=== PATIENT | female | born 1975 | race Caucasian/White ===

== ENCOUNTER → 2020-01-24 17:26 | Outpatient (CLI) | payer BC, SELFPAY ==
--- NOTE | 2020-01-24 17:59 | XR_ITS ---
PROCEDURE: XR LUMBAR SPINE MIN 4V CLINICAL INDICATION: LOW BACK PAIN SINCE PATIENT WAS 12 YEARS OLD. COMPARISON: No exams were available for comparison FINDINGS: Alignment: Normal alignment. Bony structures: No fracture or dislocation. No lytic or blastic change. Disc spaces: Mild degenerative change. The disc spaces are preserved. Additional findings: Minimal anterior osteophytes at L3-L4 and L5. Mild facet sclerotic changes at L5-S1. Nonspecific pelvic calcifications. Left-sided tubal ligation clip is present. Surgical clips are present in the right upper quadrant. There are 2 faint calcific densities overlying the lower pole of the right kidney suggesting right nephrolithiasis measuring 3 and 4 mm. IMPRESSION: Mild degenerative changes Right nephrolithiasis Dictated by: Scott Leung MD 01/24/2020 18:35 Scott Leung MD in [place] 01/24/2020 18:35
== END ==
PROVIDERS: PCP Nurse Practitioner; Visit Provider Nurse Practitioner
DX: M54.5 Low back pain (principal)
CPT/HCPCS: 72110

== ENCOUNTER → 2020-02-08 13:04 | Outpatient (CLI) | payer BC, SELFPAY ==
--- NOTE | 2020-02-08 13:07 | MR_ITS ---
PROCEDURE: MR LUMBAR SPINE WO CON CLINICAL INDICATION: LUMBAR DEGENERATVIE DISC DISEASE Pt states hx of ddd with mid to low back pain. Pt denies trauma or injury. Prior xray l-spine done 01/24/20 COMPARISON: CR XR LUMBAR SPINE MIN 4V from 01/24/2020 TECHNIQUE: Standard multiplanar multiecho sequences are performed without contrast. 3-D MIP and myelographic images are also rendered and reviewed FINDINGS: There is normal alignment. The spinal cord ends at the T12 level. L1-L2, L2-L3, L3-L4 have an unremarkable appearance. L4-5: There is a 2 cm T1 and T2 rounded hyperintensity in the central and right aspect of the body of L4 becoming less intense on the STIR images consistent with a lipid rich hemangioma. This L5-S1: Unremarkable. No extruded herniated disc or canal stenosis. IMPRESSION: 1. No acute finding. No canal stenosis or extruded herniated disc. 2. L4 hemangioma Dictated by: Scott Leung MD 02/11/2020 08:56 Scott Leung MD in [place] 02/11/2020 08:56
== END ==
PROVIDERS: PCP Nurse Practitioner; Visit Provider Nurse Practitioner
DX: M51.36 Other intervertebral disc degeneration, lumbar region (principal); M54.5 Low back pain
CPT/HCPCS: 72148; 76376

== ENCOUNTER → 2020-02-23 10:02 | Outpatient (CLI) | payer BC, SELFPAY ==
--- NOTE | 2020-02-23 10:02 | MR_ITS ---
PROCEDURE: MR HEAD/BRAIN WO/W CON CLINICAL INDICATION: severe headaches, vertigo COMPARISON: No exams were available for comparison TECHNIQUE: Routine multiplanar multi echo sequences are performed without gadolinium enhancement. FINDINGS: No midline shift, mass effect, intracranial hemorrhage, or hydrocephalus. No evidence of acute cortical infarction. The cerebellopontine angles, cerebellum, and brainstem have an unremarkable appearance. No enhancing lesions are evident. The pituitary, optic chiasm, corpus callosum, and craniocervical junction have an unremarkable appearance. There is mild bulging disc noted at C3-C4. No mastoid effusion or sinus air-fluid levels evident. IMPRESSION: 1. Negative MRI of the brain without and with contrast. 2. Mild bulging disc C3-C4. This may be better evaluated with cervical spine MRI if clinically warranted Dictated by: Scott Leung MD 02/23/2020 13:34 Scott Leung MD in [place] 02/23/2020 13:34
--- NOTE | 2020-02-23 10:13 | CA_ITS ---
APPROVED REPORT [employer] Installer: Candace Manley RVT Laterality: Bilateral Study Quality: Good Indications: vertigo Doppler Spectral Velocity Analysis ECA (R) 59.10/14.80 cm/s ECA (L) 68.10/21.80 cm/s dICA (R) 102.10/52.70 cm/s dICA (L) 70.00/32.70 cm/s Kina (R) 78.30/38.50 cm/s Kina (L) 83.50/44.30 cm/s pICA (R) 72.60/34.70 cm/s pICA (L) 99.50/37.20 cm/s dCCA (R) 78.10/26.70 cm/s dCCA (L) 93.10/36.60 cm/s pCCA (R) 94.10/19.20 cm/s pCCA (L) 87.30/24.40 cm/s Vert (R) 53.30/14.80 cm/s Vert (L) 60.40/21.80 cm/s ICA/CCA 1.31 ICA/CCA 1.07 Findings Study suggests no evidence of stenosis of the right internal cartoid artery. Study suggests no evidence of stenosis of the left internal cartoid artery. Antegrade flow seen bilateral vertebral arteries. Conclusion Study suggests no evidence of stenosis of the right internal cartoid artery. Study suggests no evidence of stenosis of the left internal cartoid artery. Antegrade flow seen bilateral vertebral arteries. Electronically signed by : Scott Leung MD 02/23/2020 13:52:29
[2020-02-23 13:52] LABS: Blood Urea Nitrogen 16 mg/dl (7-17); Estimated Glomerular Filt Rate 78 ml/min (>60); GFR (African American) 94 ML/MIN (>60)
[2020-02-23 14:13] LABS: Erythrocyte Sedimentation Rate 36 mm/hr (0-20)
[2020-03-05 08:02] LABS: Antinuclear Antibodies (ANA) NEGATIVE
== END ==
PROVIDERS: PCP Nurse Practitioner; Visit Provider Specialist
DX: G43.909 Migraine, unspecified, not intractable, without status migrainosus (principal); R42 Dizziness and giddiness
CPT/HCPCS: 36415; 70553; 82565; 84520; 85651; 86038; 93880; A9576; G0399

== ENCOUNTER → 2020-02-23 11:48 | Outpatient (CLI) | payer BC, SELFPAY | PROVIDERS: Visit Provider Specialist | DX: R51.9 Headache, unspecified (principal) | CPT/HCPCS: 36415; 82565; 84520; 85651; 86038 ==

== ENCOUNTER → 2020-03-12 12:44 | Outpatient (CLI) | payer BC, SELFPAY | PROVIDERS: PCP Nurse Practitioner; Visit Provider Family Medicine | DX: Z20.828 Contact with and (suspected) exposure to other viral communicable diseases (principal); U07.1 COVID-19 | CPT/HCPCS: U0003 ==

== ENCOUNTER → 2021-11-20 06:46 | Outpatient (CLI) | payer BC, SELFPAY ==
[2021-11-19 18:34] LABS: Basophils # 0.1 K/mm3 (0-0.2); Eosinophils # 0.2 K/mm3 (0.0-0.4); Eosinophils % 2.5 % (0.1-12.0); Hematocrit 41.6 % (37.0-47.0); Hemoglobin 13.6 g/dL (12.2-16.2); Lymphocytes # 1.8 K/mm3 (0.7-4.5); Lymphocytes % 24.2 % (10-50); Mean Corpuscular HGB Conc 32.6 g/dL (31.8-35.4); Mean Corpuscular Hemoglobin 29.4 pg (27.0-31.2); Mean Corpuscular Volume 90.3 fl (81-99); Mean Platelet Volume 8.3 fl (7.4-10.4); Monocytes # 0.6 K/mm3 (0.1-1.0); Monocytes % 7.3 % (1.7-9.3); Neutrophils % 65.1 % (37.0-80.0); Platelet Count 353 K/mm3 (142-424); Red Blood Count 4.61 M/mm3 (4.20-5.40); Red Cell Distribution Width 13.4 % (11.5-17.5); White Blood Count 7.6 K/mm3 (4.8-10.8)
[2021-11-19 19:38] LABS: Hemoglobin A1C 5.6 % (4.0-6.0)
[2021-11-19 19:57] LABS: Alanine Aminotransferase 40 U/L (12-78); Albumin Level 3.9 g/dl (3.5-5.0); Albumin/Globulin Ratio 1.4 (1.1-1.8); Alkaline Phosphatase 101 U/L (38-126); Anion Gap 9.6 mEq/L (5-15); Aspartate Amino Transferase 38 U/L (14-36); Blood Urea Nitrogen 8 mg/dl (7-17); Calcium 8.9 mg/dl (8.4-10.2); Carbon Dioxide 29 mmol/L (22.0-30.0); Chloride 103 mmol/L (98-107); Chol/HDL Ratio 5.8 (1-3.5); Cholesterol 190 mg/dl (140-200); Estimated Glomerular Filt Rate 108 ml/min (>60); GFR (African American) 130 ML/MIN (>60); Globulin 2.8 g/dL (1.3-3.2); Glucose 121 mg/dl (74-100); HDL Cholesterol 33 mg/dl (40-60); Potassium 4.6 mmoL/L (3.5-5.1); Sodium 137 mmol/L (136-145); Total Protein,Serum 6.7 g/dl (6.3-8.2); Triglycerides 151 mg/dl (30-150); VLDL Cholesterol 30 mg/dL (0-40)
[2021-11-19 20:08] LABS: Direct LDL Cholesterol 126.33 mg/dL (100-129)
[2021-11-19 20:30] LABS: Thyroid Stimulating Hormone 1.71 uIU/mL (0.465-4.68)
== END ==
PROVIDERS: PCP Nurse Practitioner; Visit Provider Nurse Practitioner
DX: G43.909 Migraine, unspecified, not intractable, without status migrainosus (principal); E66.9 Obesity, unspecified; Z68.41 Body mass index [BMI] 40.0-44.9, adult
CPT/HCPCS: 80053; 80061; 83036; 84443; 85025

== ENCOUNTER → 2022-01-07 07:06 | Outpatient (CLI) | payer BC, SELFPAY ==
[2022-01-07 20:44] LABS: Basophils # 0.1 K/mm3 (0-0.2); Basophils % 0.9 % (0.1-2.0); Eosinophils # 0.2 K/mm3 (0.0-0.4); Eosinophils % 2.2 % (0.1-12.0); Hematocrit 41.3 % (37.0-47.0); Hemoglobin 12.6 g/dL (12.2-16.2); Lymphocytes # 2.1 K/mm3 (0.7-4.5); Lymphocytes % 23.1 % (10-50); Mean Corpuscular HGB Conc 30.5 g/dL (31.8-35.4); Mean Corpuscular Hemoglobin 28.2 pg (27.0-31.2); Mean Corpuscular Volume 92.4 fl (81-99); Mean Platelet Volume 8.8 fl (7.4-10.4); Monocytes # 0.6 K/mm3 (0.1-1.0); Monocytes % 6.3 % (1.7-9.3); Neutrophils % 67.4 % (37.0-80.0); Platelet Count 398 K/mm3 (142-424); Red Blood Count 4.47 M/mm3 (4.20-5.40); Red Cell Distribution Width 14.4 % (11.5-17.5); White Blood Count 8.9 K/mm3 (4.8-10.8)
[2022-01-09 10:16] LABS: Cytomegalovirus (CMV) Ab, IgM <30.0 AU/mL (0.0-29.9)
[2022-01-09 13:10] LABS: Antistreptolysin O Ab <20.0 IU/mL (0.0-200.0)
[2022-01-09 14:11] LABS: EBV Ab VCA, IgM <36.0 U/mL (0.0-35.9); EBV Nuclear Antigen Ab, IgG 20.8 U/mL (0.0-17.9)
[2022-01-13 23:07] LABS: Lyme B. burgdorferi PCR Blood Negative (Negative)
== END ==
PROVIDERS: PCP Nurse Practitioner; Visit Provider Nurse Practitioner
DX: R59.0 Localized enlarged lymph nodes (principal)
CPT/HCPCS: 85025; 86060; 86644; 86645; 86664; 86665; 87476

== ENCOUNTER → 2022-01-15 14:46 | Outpatient (CLI) | payer BC, SELFPAY ==
--- NOTE | 2022-01-15 14:46 | US_ITS ---
FINAL REPORT CLINICAL HISTORY: Right axillary lymphadenopathy FINDINGS: US EXTREMITY, NONVASCULAR, LIMITED, ANATOMIC SPECIFIC Limited sonographic images were obtained of the right axilla. At the area of interest are multiple enlarged lymph nodes measuring up to 3 cm in greatest dimensions. IMPRESSION: Multiple enlarged lymph nodes at the area of interest could be reactive or neoplastic. Reviewed, Interpreted and Dictated by Ivan Garland III, MD Transcribed by Camilo Bass Authenticated and [facility]
== END ==
PROVIDERS: PCP Nurse Practitioner; Visit Provider Nurse Practitioner
DX: R59.0 Localized enlarged lymph nodes (principal)
CPT/HCPCS: 76882

== ENCOUNTER → 2022-01-28 15:01 | Outpatient (POV) | payer BC, SELFPAY | PROVIDERS: Visit Provider Dermatology | DX: Z00.00 Encounter for general adult medical examination without abnormal findings (principal) ==

== ENCOUNTER → 2022-01-29 10:41 | Outpatient (CLI) | payer BC, SELFPAY ==
--- NOTE | 2022-01-29 10:41 | US_ITS ---
PROCEDURE INFORMATION: Exam: US Right Breast, Complete MG Bilateral Screening 3D Mammography Exam date and time: 01/29/2022 11:44 AM Age: 46 years old Clinical indication: Patient had abnormal axillary ultrasound on 01/15/22 she returned today for bilateral mammogram and right breast ultrasound TECHNIQUE: Imaging protocol: Complete ultrasound of all four quadrants of the Right breast and the retroareolar regions, including ultrasound of the axilla when performed. Bilateral Screening tomosynthesis and 2D mammography including computer-aided detection (CAD) when performed. COMPARISON: MG MM DIG SCREENING MAMM BI W/CAD 01/29/2022 10:41 AM FINDINGS: MAMMOGRAPHY: Breast composition: The breasts are heterogeneously dense, which may obscure small masses. Mass: 3 irregularly marginated masses are noted in the posterior third of the right upper outer quadrant. The largest and more anterior mass measures 3.1 cm in greatest dimension. The 2 smaller more posterior masses near the right axillary tail measured 2.5 and 1.3 cm respectively. There is associated architectural distortion present. There is the suggestion of a fourth mass in the middle third of the right upper outer quadrant better seen in the MLO projection, approximately 6 cm anterior to the suspicious cluster of masses in the posterior third of the right upper outer quadrant Well-circumscribed 0 7 cm mass in the middle third of the LEFT approximate 9 o'clock axis. Architectural distortion: See above. Calcifications: None. Asymmetric density: None. Skin thickening: None. Axillary adenopathy: Abnormal dense right axillary lymph nodes are present.. ULTRASOUND: Right solid masses: Lobulated hypoechoic solid mass in the 10 o'clock axis 12 cm from the nipple measures 1.9 x 2.4 x 1.6 cm in dimension. In the right 10 o'clock axis 10 cm from the nipple corresponding to the dominant mass on mammography is a partially circumscribed heterogeneous hypoechoic lobulated solid mass measuring 3.4 x 1.8 x 3.2 cm in dimension. The third mass seen in the right axillary tail on the MLO view measuring 1.3 cm in greatest dimension is not seen on sonography. Minimal subcentimeter cystic change is otherwise noted in the right lower outer quadrant and right 12 o'clock axis 3 cm from the nipple. Right cystic masses: None. Right architectural distortion: None. Right acoustical shadowing: None. Right skin thickening: None. Right axillary adenopathy: Multiple abnormal lymph nodes are present, in that, no fatty or definitive fatty nba are identified. Left solid masses: None. Left cystic masses: None. Left architectural distortion: None. Left acoustical shadowing: None. Left skin thickening: None. Left axillary adenopathy: None. Other findings: IMPRESSION: 1. Findings highly suggestive multifocal right breast cancer with ipsilateral metastatic axillary adenopathy. Ultrasound-guided core biopsy of the dominant mass and ultrasound-guided fine needle aspiration of the right axilla are recommended for further evaluation. 2. Patient to return for spot compression views of the left breast in the CC and MLO projections and left breast ultrasound for further evaluation of a left breast mass. 3. Questionable subcentimeter mass in the middle third of the right upper outer quadrant may be further evaluated with compression mammographic views and repeat targeted right breast ultrasound if desired. ASSESSMENT: BI-RADS Category 0: Incomplete- Need Additional Imaging Evaluation and/or Prior Mammograms for Comparison 1
== END ==
PROVIDERS: PCP Nurse Practitioner; Visit Provider Nurse Practitioner
DX: R59.0 Localized enlarged lymph nodes (principal); Z12.31 Encounter for screening mammogram for malignant neoplasm of breast
CPT/HCPCS: 76641; 77063; 77067

== ENCOUNTER → 2022-02-03 14:00 | Outpatient (CLI) | payer BC, SELFPAY ==
--- NOTE | 2022-02-03 14:01 | US_ITS ---
PROCEDURE INFORMATION: Exam: US Left Breast, Complete MG Bilateral Diagnostic Breast Tomosynthesis Exam date and time: 02/03/2022 2:23 PM Age: 46 years old Clinical indication: The right breast ultrasound/mammogram from 01/29/2022 describes findings highly suggestive of right breast cancer with axillary metastatic adenopathy. Additional assessment including spot compression views of the left breast to assess a 7 mm mass in the 9 o'clock middle 1/3, and questionable subcentimeter mass in the middle 1/3 right upper outer quadrant was recommended as well TECHNIQUE: Imaging protocol: Complete ultrasound of all four quadrants of the Left breast and the retroareolar regions, including ultrasound of the axilla when performed. Bilateral Diagnostic tomosynthesis and 2D mammography including computer-aided detection (CAD) when performed. Unilateral or bilateral exam. COMPARISON: MG MM DIG MAMM BI DX W/CAD 02/03/2022 1:56 PM FINDINGS: MAMMOGRAPHY: Right: Persistent 0.6 cm upper outer right middle 1/3 focal asymmetry is mostly obscured. This could reflect solid or cystic mass. If conservative therapy is a clinical consideration, MRI staging should be considered to assess for multifocal extent Left: Spot compression views of the left breast demonstrate a circumscribed low-density 0.7 cm mass in the approximately 9 o'clock left breast 7 cm from the nipple. No associated architectural distortion or suspicious calcifications are present. This has generally benign features ULTRASOUND: Hypoechoic/anechoic circumscribed structures consistent with simple and mildly complex cysts are present throughout the left breast as follows: 0.5 cm left 1 o'clock 5 cm from the nipple 0.4 cm left 6 o'clock 4 cm from the nipple 0.7 cm left 8 o'clock 6 cm from the nipple (corresponds well in size in location with the mammographic finding. No dominant or morphologically suspicious left breast mass is present IMPRESSION: As previously described, there is highly suggestive evidence of multifocal right breast cancer (the largest mass 3.3 cm, with largest axillary adenopathy 4.0 cm) with metastatic axillary adenopathy for which ultrasound-guided biopsy is recommended MRI staging should be considered if conservative therapy is considered as a nonspecific mammographically apparent 0.6 cm upper outer right middle 1/3 mass/cyst is present No suspicious findings are present within the left breast. ASSESSMENT: BI-RADS category 5: Highly suggestive of malignancy
== END ==
PROVIDERS: PCP Nurse Practitioner; Visit Provider Nurse Practitioner
DX: D48.62 Neoplasm of uncertain behavior of left breast (principal); D48.61 Neoplasm of uncertain behavior of right breast
CPT/HCPCS: 76641; 77062; 77066; G0279

== ENCOUNTER → 2022-02-06 10:41 | Outpatient (CLI) | payer BC, SELFPAY ==
--- NOTE | 2022-02-06 10:41 | US_ITS ---
FINAL REPORT CLINICAL HISTORY: Right breast mass. Right axillary adenopathy. Biopsy x2 FINDINGS: ULTRASOUND-GUIDED RIGHT BREAST CORE BIOPSY TECHNIQUE: Limited images were obtained to localize region of interest. Lobulated mass was identified in the right upper outer quadrant. The right axilla was prepped in a routine sterile fashion and locally anesthetized with 1% lidocaine. Standard written informed consent was obtained. The biopsy needle was positioned within the outer periphery of the lesion. Lesion was positioned at approximately 10:00. A total of 4 passes were made with a 18 gauge core biopsy needle. A biopsy marker clip was deployed in satisfactory position. Postbiopsy mammogram showed postbiopsy changes with clip in satisfactory position. Procedure was well tolerated . CONCLUSION: 1. Technically successful ultrasound guided core biopsy of right breast lesion as above. 2. Biopsy marker clip deployed ULTRASOUND-GUIDED RIGHT AXILLARY LYMPH NODE CORE BIOPSY TECHNIQUE: Limited images were obtained to localize region of interest. Multiple enlarged lymph nodes were identified in the right axilla. The right axilla was prepped in a routine sterile fashion and locally anesthetized with 1% lidocaine. Standard written informed consent was obtained. The biopsy needle was positioned within the outer periphery of the lesion. A total of 3 passes were made with a 18 gauge core biopsy needle. Procedure was well tolerated . CONCLUSION: 1. Technically successful ultrasound guided core biopsy of enlarged right axillary lymph node Authenticated and [facility]
--- NOTE | 2022-02-06 12:05 | MM_ITS ---
FINAL REPORT CLINICAL HISTORY: . . clip placement , S/p Ultrasound guided bx FINDINGS: MAMMOGRAM RIGHT TECHNIQUE: Standard digital 2-D views COMPARISON: 01-29-22 DENSITY: There are scattered areas of fibroglandular density FINDINGS: Post biopsy marker clip is noted to be in satisfactory position. Postbiopsy changes are noted. The clip is noted to be within a mass in the right upper outer quadrant. IMPRESSION: Biopsy marker clip in good position RECOMMENDATION: 1. Histopathology reveals findings compatible with invasive ductal carcinoma 2. Appropriate consultation recommended for treatment Authenticated and [facility]
== END ==
PROVIDERS: PCP Nurse Practitioner; Visit Provider Surgery
DX: D48.61 Neoplasm of uncertain behavior of right breast (principal)
CPT/HCPCS: 10005; 19083; 76642; 77065; 88305; 88342; 88360

== ENCOUNTER 2022-04-14 12:00 | Outpatient (CLI) | payer BC, SELFPAY ==
[2022-04-16 12:38] LABS: Rapid Plasma Reagin Ab Titer Non Reactive (NonRea<1:1)
[2022-04-19 23:09] LABS: HIV Screen 4th Generation wRfx NON REACTIVE; Hep A Ab, IgM NEGATIVE; Hepatitis B Core Antibody IgM NEGATIVE; Hepatitis B Surface Antigen NEGATIVE; Hepatitis C Antibody <0.1
== END 2022-04-14 12:30 | disposition home or self-care (01) ==
LOC: LAB 12:02 → INF 12:04
PROVIDERS: PCP Nurse Practitioner; Visit Provider Obstetrics & Gynecology
DX: Z20.2 Contact with and (suspected) exposure to infections with a predominantly sexual mode of transmission (principal); Z11.4 Encounter for screening for human immunodeficiency virus [HIV]
CPT/HCPCS: 36591; 80074; 86592; 86703; G0432; J1642

== ENCOUNTER → 2022-04-15 11:35 | Outpatient (CLI) | payer BC, SELFPAY | PROVIDERS: Visit Provider Obstetrics & Gynecology | DX: N39.0 Urinary tract infection, site not specified (principal); B96.29 Other Escherichia coli [E. coli] as the cause of diseases classified elsewhere | CPT/HCPCS: 87086; 87186 ==

== ENCOUNTER → 2022-06-23 23:39 | Outpatient (CLI) | payer BC, SELFPAY ==
[2022-06-23 18:19] LABS: Adenovirus,PCR Not Detected (NotDetected); Bordetella Pertussis Not Detected (NotDetected); Chlamydophila Pneumoniae, PCR Not Detected (NotDetected); Coronavirus 229E Not Detected (NotDetected); Coronavirus NL63 Not Detected (NotDetected); Coronavirus OC43 Not Detected (NotDetected); Coronovirus HKU1,PCR Not Detected (NotDetected); Human Metapneumovirus Not Detected (NotDetected); Influenza A, PCR Not Detected (NotDetected); Influenza AH1, 2009 Not Detected (NotDetected); Influenza AH1, PCR Not Detected (NotDetected); Influenza AH3,PCR Not Detected (NotDetected); Influenza B, PCR Not Detected (NotDetected); Mycoplasma Pneumoniae, PCR Not Detected (NotDetected); Parainfluenza 1, PCR Not Detected (NotDetected); Parainfluenza 2, PCR Not Detected (NotDetected); Parainfluenza 3, PCR Not Detected (NotDetected); Parainfluenza 4, PCR Not Detected (NotDetected); Respiratory Syncytial Virus Not Detected (NotDetected); Rhinovirus/Enterovirus Not Detected (NotDetected)
[2022-06-23 19:29] LABS: Anion Gap 9.8 mEq/L (5-15); Blood Urea Nitrogen 7 mg/dl (7-17); Calcium 8.8 mg/dl (8.4-10.2); Carbon Dioxide 27 mmol/L (22.0-30.0); Chloride 102 mmol/L (98-107); Estimated Glomerular Filt Rate 133 ml/min (>60); GFR (African American) 161 ML/MIN (>60); Glucose 133 mg/dl (74-100); Potassium 3.8 mmoL/L (3.5-5.1); Sodium 135 mmol/L (136-145)
[2022-06-23 19:45] LABS: Hemoglobin A1C 5.5 % (4.0-6.0)
[2022-06-23 20:29] LABS: Basophils # 0.1 K/mm3 (0-0.2); Basophils % 1.6 % (0.1-2.0); Eosinophils # 0.2 K/mm3 (0.0-0.4); Eosinophils % 5.8 % (0.1-12.0); Hematocrit 34.5 % (37.0-47.0); Hemoglobin 11.1 g/dL (12.2-16.2); Lymphocytes # 0.8 K/mm3 (0.7-4.5); Lymphocytes % 20.9 % (10-50); Mean Corpuscular HGB Conc 32.2 g/dL (31.8-35.4); Mean Corpuscular Hemoglobin 29.8 pg (27.0-31.2); Mean Corpuscular Volume 92.5 fl (81-99); Mean Platelet Volume 9.6 fl (7.4-10.4); Monocytes # 0.2 K/mm3 (0.1-1.0); Monocytes % 5.7 % (1.7-9.3); Neutrophils # 2.4 K/mm3 (1.8-7.8); Platelet Count 280 K/mm3 (142-424); Red Blood Count 3.73 M/mm3 (4.20-5.40); Red Cell Distribution Width 18.3 % (11.5-17.5); White Blood Count 3.6 K/mm3 (4.8-10.8)
[2022-06-23 22:40] LABS: Coronavirus 19, PCR Detected (NotDetected)
== END ==
PROVIDERS: PCP Nurse Practitioner; Visit Provider Nurse Practitioner
DX: U07.1 COVID-19 (principal); J06.9 Acute upper respiratory infection, unspecified; R73.09 Other abnormal glucose
CPT/HCPCS: 80048; 83036; 85025; 87581; 87632; 87798; C9803; U0003; U0005

== ENCOUNTER 2024-04-05 15:50 | Outpatient (CLI) | payer BC, SELFPAY ==
[2024-04-05 18:55] LABS: Basophils # 0.1 K/mm3 (0-0.2); Basophils % 1.4 % (0.1-2.0); Eosinophils # 0.2 K/mm3 (0.0-0.4); Eosinophils % 3.1 % (0.1-12.0); Hematocrit 41.9 % (37.0-47.0); Hemoglobin 13.6 g/dL (12.2-16.2); Lymphocytes # 2.1 K/mm3 (0.7-4.5); Lymphocytes % 33.1 % (10-50); Mean Corpuscular HGB Conc 32.3 g/dL (31.8-35.4); Mean Corpuscular Hemoglobin 28.8 pg (27.0-31.2); Mean Corpuscular Volume 89.2 fl (81-99); Mean Platelet Volume 7.2 fl (7.4-10.4); Monocytes # 0.3 K/mm3 (0.1-1.0); Monocytes % 5.1 % (1.7-9.3); Neutrophils # 3.6 K/mm3 (1.8-7.8); Neutrophils % 57.3 % (37.0-80.0); Platelet Count 284 K/mm3 (142-424); Red Cell Distribution Width 14.8 % (11.5-17.5); White Blood Count 6.3 K/mm3 (4.8-10.8)
[2024-04-05 19:20] LABS: Alanine Aminotransferase 37 U/L (12-78); Albumin Level 4.3 g/dl (3.5-5.0); Albumin/Globulin Ratio 1.7 (1.1-1.8); Alkaline Phosphatase 107 U/L (38-126); Anion Gap 11.1 mEq/L (5-15); Aspartate Amino Transferase 28 U/L (14-36); Blood Urea Nitrogen 9 mg/dl (7-17); Calcium 9.3 mg/dl (8.4-10.2); Carbon Dioxide 30 mmol/L (22.0-30.0); Chloride 102 mmol/L (98-107); Chol/HDL Ratio 4.8 (1-3.5); Cholesterol 202 mg/dl (140-200); Estimated Glomerular Filt Rate 89 ml/min (>60); GFR (African American) 108 ML/MIN (>60); Globulin 2.6 g/dL (1.3-3.2); Glucose 89 mg/dl (74-100); HDL Cholesterol 42 mg/dl (40-60); Potassium 4.1 mmoL/L (3.5-5.1); Sodium 139 mmol/L (136-145); Total Protein,Serum 6.9 g/dl (6.3-8.2); Triglycerides 144 mg/dl (30-150); VLDL Cholesterol 29 mg/dL (0-40)
[2024-04-05 19:27] LABS: Erythrocyte Sedimentation Rate 15 mm/hr (0-20)
[2024-04-05 19:31] LABS: C-Reactive Protein 18.5 mg/L (0-4); Direct LDL Cholesterol 146.43 mg/dL (100-129)
[2024-04-05 19:40] LABS: 25-OH Vitamin D, Total 26.5 ng/mL (30-100); Free T4 (Free Thyroxine) 0.67 ng/dl (0.78-2.19)
[2024-04-05 19:52] LABS: Thyroid Stimulating Hormone 3.69 uIU/mL (0.465-4.68)
[2024-04-05 20:00] LABS: Hemoglobin A1C 5.9 % (4.0-6.0)
[2024-04-05 21:31] LABS: Vitamin B12 424 pg/mL (239-931)
[2024-04-07 08:26] LABS: RA Latex Turbid. <10.0 IU/mL (<14.0)
[2024-04-07 12:15] LABS: Anti-Centromere B Antibodies <0.2 AI (0.0-0.9); Anti-DNA (DS) Ab Qn 1 IU/mL (0-9); Anti-Jo-1 <0.2 AI (0.0-0.9); Anti-Smith Antibody <0.2 AI (0.0-0.9); Antichromatin Antibodies <0.2 AI (0.0-0.9); Antiscleroderma-70 Antibodies <0.2 AI (0.0-0.9); RNP Antibodies <0.2 AI (0.0-0.9); Sjogren's Anti-SS-A <0.2 AI (0.0-0.9); Sjogren's Anti-SS-B <0.2 AI (0.0-0.9)
[2024-04-08 11:23] LABS: Antinuclear Antibodies, IFA POSITIVE
== END 2024-04-05 23:59 | disposition home or self-care (01) ==
LOC: LAB.DROPOF 04-06 09:54
PROVIDERS: PCP Nurse Practitioner; Visit Provider Nurse Practitioner
DX: R42 Dizziness and giddiness (principal); R25.2 Cramp and spasm; Z13.1 Encounter for screening for diabetes mellitus; Z13.220 Encounter for screening for lipoid disorders; Z92.21 Personal history of antineoplastic chemotherapy
CPT/HCPCS: 80050; 80053; 80061; 82306; 82607; 83036; 84439; 84443; 84550; 85025; 85651; 86038; 86140; 86225; 86235; 86431

== ENCOUNTER 2024-10-05 13:34 | Outpatient (CLI) | payer BC, SELFPAY ==
[2024-10-05] MEDS: SODIUM CHLORIDE 0.9% 10ML FLUSH SYRINGE 10 ML IV (14:07)
== END 2024-10-05 13:55 | disposition home or self-care (01) ==
LOC: INF 13:35
PROVIDERS: PCP Nurse Practitioner; Visit Provider Internal Medicine
DX: Z45.2 Encounter for adjustment and management of vascular access device (principal)
CPT/HCPCS: 96523; J1642

== ENCOUNTER 2024-11-15 10:10 | Outpatient (CLI) | payer BC, SELFPAY ==
[2024-11-15] MEDS: SODIUM CHLORIDE 0.9% 10ML FLUSH SYRINGE 10 ML IV (10:25)
== END 2024-11-15 10:20 | disposition home or self-care (01) ==
LOC: INF 10:11
PROVIDERS: PCP Nurse Practitioner; Visit Provider Internal Medicine
DX: Z45.2 Encounter for adjustment and management of vascular access device (principal)
CPT/HCPCS: 96523; J1642

== ENCOUNTER 2024-12-13 08:14 | Outpatient (CLI) | payer BC, SELFPAY ==
[2024-12-13] MEDS: SODIUM CHLORIDE 0.9% 10ML FLUSH SYRINGE 10 ML IV (08:15)
--- OUTSIDE RECORDS SUMMARY | 2024-12-13 08:31 | XMS_ITS | Clinical Summary ---
Author Organization [facility] Address [address] [place], [place] [address] Care Team Providers Care Chlorinator Name Role Phone None, None Primary Care Provider Unavailabl e Allergies Active Allergy Reactions Criticality Noted Date Comments Penicillins Hives Medium 02/12/2012 Sulfa (Sulfonamide Antibiotics) Nausea And Vomiting Medium 02/12/2012 Medications ACETAMINOPHEN/D IPHENHYDRAMINE (TYLENOL PM EXTRA STRENGTH PO) Take 2 Tabs by mouth as needed. Active ibuprofen (MOTRIN) 600 mg tablet Take 1 Tab by mouth every 6 hours as needed for Pain. 90 Tab 1 12/09/2017 Active butalbital-acet aminophen-caffe ine (FIORICET, ESGIC) 50-325-40 mg per tabletIndicatio ns:Tension headache Take 1-2 Tabs by mouth every 6 hours as needed for Headaches. 30 Tab 12/09/2017 Active metaxalone (SKELAXIN) 800 mg TabletIndicatio ns:Neck pain Take 1 Tab by mouth 3 times daily. 90 Tab 1 12/09/2017 Active sumatriptan (IMITREX) 100 mg Tablet Take 1 Tab by mouth once as needed for Migraine for up to 1 dose. 10 Tab 1 12/09/2017 Active amitriptyline (ELAVIL) 25 mg tablet Take 1 Tab by mouth every evening. 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 ainosus, not intractable, unspecified migraine type 03/24/2018 Tension headache 03/24/2018 Family History Relation Name Status Comments Daughter 1 Alive Daughter 2 Alive Son 1 Alive Son 2 Alive Son 3 Alive Social History Tobacco Use Types Packs/Day Years Used Date Smoking Tobacco: Former Cigarettes Q uit: 12/23/2010 Smokeless Tobacco: Never Tobacco Cessation:Counseling Given: Yes Alcohol Use Standard Drinks/Week Comments Yes 0 (1 standard drink = 0.6 oz pur e alcohol) rarely PHQ-2 Answer Date Recorded PHQ-2 Score 0 08/07/2018 Comments No Sex and Gender Information Value Date Recorded Sex Assigned at Not on file Legal Sex Female 7:22 PM EST Gender Identity Not on file Sexual Orientation Not on file Last Filed Vital Signs Vital Sign Reading Time Taken Comments Blood Pressure 122/80 06/11/2018 12:41 PM EST Pulse 115 06/11/2018 12:41 PM EST Temperature 36.8 C (98.3 F) 06/11/2018 12:41 PM EST Respiratory Rate - - Oxygen Saturation 95% 06/11/2018 12:41 PM EST Inhaled Oxygen Concentration - - Weight 108.9 kg (240 lb) 06/11/2018 12:41 PM EST Height 165.1 cm (5' 5 ) 07/05/2015 2:51 PM EST Body Mass Index 39.94 07/05/2015 2:51 PM EST Plan of Treatment Health Maintenance Due Date Last Done Comments Cologuard 1975 Colonoscopy 1975 Colorectal Cancer Screening 1975 FIT 1975 Cervical Cancer Screening 05/20/20202017 (Patient/Parent/Guardian Counseled and Declines) Lipid Screening 05/20/2022 05/20/2017 COVID-19 Vaccine (2023-2 5 season) 2024 Depression Screening 05/04/2024 03/24/2018 Influenza Vaccination (#1) 2025 Tetanus Vaccination (Every 1 0 Years) 05/20/2027 05/20/2017 (Patient/Parent/Guardian Counseled and Declines) Influenza Vaccination (Yearly) Discontinued 0 05/20/2017 (Patient/Parent/Guardian Counseled and Declines) Procedures Procedure Name Priority Date/Time Associated Diagnosis Comments LIPID PROFILE Routine 05/20/2017 11:35 AM EST Increased severity of headaches Facial paresthesia Migraine without status migrainosus, not intractable, unspecified migraine type from Last 3 Months or Most Recently Relevant to Health Maintenance Results * (ABNORMAL) LIPID PROFILE (05/20/2017 11:35 AM EST) Chol/HDL Ratio 5.5(H) 0 - 5 TC E XTERNAL LAB Cholesterol 188 125 - 199 mg/dL [facility] Comment: TOTAL CHOLESTEROL INTERPRETATION: Less than 200 mg/dL Desireable 200-239 mg/dL Borderline Greater or Equal to 240 mg/dL High LDL Calculated 119(H) 0 - 100 mg/dL [facility] Comment: LDL CHOLESTEROL INTERPRETATION: Less than 100 mg/dL Optimal 100-129 mg/dL Near optimal/above optimal 130-159 mg/dL Borderline High 160-189 mg/dL High Greater or Equal to 190 mg/dL Very High HDL 34(L) 40 - 180 mg/dL [facility] Comment: HDL CHOLESTEROL INTERPRETATION: Less than 40 mg/dL Low Greater than 60 mg/dL Desirable Triglycerides 174(H) 0 - 150 mg/dL [facility] Comment: TOTAL TRIGLYCERIDE INTERPRETATION: Less than 150 mg/dL Normal 150-199 mg/dL Borderline HIgh 200-499 mg/dL High Greater or Equal to 500 mg/dL Very High Plasma 05/20/2017 11:3 5 AM EST 05/20/2017 2:26 PM EST Narrative [facility] - 05/20/2017 5:22 PM EST Has the patient fasted?->Yes us Deuce Rapp MD CHEMISTRY ORDERABLES Final Res ult [facility] [address] [place] [address] from Last 3 Months or Most Recently Relevant to Health Maintenance Insurance [employer] Care Teams Chlorinator Relationship Specialty Start Date End Date None, None [address] [place] [address] PCP - General 05/16/19
--- OUTSIDE RECORDS SUMMARY | 2024-12-13 08:31 | XMS_ITS ---
Author Name Interface, [id number] lity Address [address] [place], [place] [address] [address] Oncology an d Hematology Address [address] [place] [address] [address] [place] [address] Allergies and Adverse Reactions Medication/Group Name Reaction Severity Date Sulfamide 02/18/2022 Penicillins 02/18/2022 Plan Date Type Value 02/20/2022 APPOINTMENT NEW PATIENT 02/20/2022 APPOINTMENT Lab 02/20/2022 LABORDER CBC w/ auto diff 02/20/2022 LABORDER CMP 02/20/2022 LABORDER CA 27-29 Reason for Visit Lab Encounters Date Name 02/20/2022 Advance directive in formation unavailable (finding) 02/20/2022 Breast cancer, femal e Diagnostic Results Date Type Test Units Lower Limit Upper Limit Result Flag Comments Status Ordered By Specimen Source Lab Address 02/20 CA 27-29 U/mL 0.0 38.6 10.4 Siemens Centaur Immunoche miluminom etric Methodolo gy (ICMA) .Values obtained with different assay methods or kits cannot be usedinter changeabl y. Results cannot be interpret ed as absolute evidenceo f the presence or absence of malignant disease. FINAL [address] [id number] Isidro Bass i PhD 02/20 PDF Repor t1 See d FINAL [address] [id number] 9 Isidro Bass i PhD 02/20 WBC x10E3/ uL 3.4 10.8 8.[address] [id number] 9 Isidro Bass i PhD 02/20 RBC x10E6/ uL 3.77 5.28 4.72 FINAL [facility], [address] [facility] [place] [id number] 9 Vincent Ricchiut i PhD 02/20 HGB g/dL 11.1 15.9 13.7 FINAL Elan Myhand [facility], [address] [facility] [id number] 9 Vincent Ricchiut i PhD 02/20 HCT % 34.0 46.6 41.6 FINAL Elan Myhand [facility], [address] [facility] [place] [id number] 9 Vincent Ricchiut i PhD 02/20 MCV fL 79.0 97.0 88 FINAL Elan Myhand [facility], [address] [facility] [id number] 9 Vincent Ricchiut i PhD 02/20 MCH pg 26.6 33.0 29.0 FINAL [facility] [place] [facility], [address] [facility] [id number] 9 Vincent Ricchiut i PhD 02/20 MCHC g/dL 31.5 35.7 32.9 FINAL [facility] [place] [facility], [address] [facility] [id number] 9 Vincent Ricchiut i PhD 02/20 RDW % 11.7 15.4 13.0 FINAL [facility] [place], [address] [facility] [id number] 9 Vincent Ricchiut i PhD 02/20 PLT x10E3/ uL 150.0 450.0 355 FINAL [facility] [place], [address] [facility] [place] [id number] 9 Vincent Ricchiut i PhD 02/20 Kalpana % % 59 FINAL Elan Myhand [facility], [address] [facility] [place] [id number] 9 Vincent Ricchiut i PhD 02/20 LY % % 31 FINAL Elan Myhand [facility], [address] [facility] [id number] 9 Vincent Ricchiut i PhD 02/20 MO % % 7 FINAL Elan Myhand [facility], [address] [facility] [place] [id number] 9 Vincent Ricchiut i PhD 02/20 EO % % 2 FINAL Elan Myhand [facility], [address] [facility] [place] [id number] 9 Vincent Ricchiut i PhD 02/20 BA % % 1 FINAL Elan Myhand [facility], [address] [facility] [place] [id number] 9 Vincent Ricchiut i PhD 02/20 Kalpana # (ANC) x10E3/ uL 1.4 7.0 5.0 FINAL Elan Myhand [facility], [address] [facility] [place] [id number] 9 Vincent Ricchiut i PhD 02/20 LY # x10E3/ uL 0.7 3.1 2.7 FINAL Elan Myhand [facility], [address] [facility] [place] [id number] 9 Vincent Ricchiut i PhD 02/20 MO # x10E3/ uL 0.1 0.9 0.6 FINAL Elan Myhand [facility], [address] [facility] [place] [id number] 9 Vincent Ricchiut i PhD 02/20 EO # x10E3/ uL 0.0 0.4 0.2 FINAL Elan Myhand [facility], [address] [facility] [place] [id number] 9 Vincent Ricchiut i PhD 02/20 BA # x10E3/ uL 0.0 0.2 0.1 FINAL Elan Myhand [facility], [address] [facility] [place] [id number] 9 Vincent Ricchiut i PhD 02/20 IG % % 0 FINAL Elan Myhand [facility], [address] [facility] [place] [id number] 9 Vincent Ricchiut i PhD 02/20 IG # x10E3/ uL 0.0 0.1 0.0 FINAL Elan Myhand [facility], [address] [facility] [place] [id number] 9 Vincent Ricchiut i PhD 02/20 Gluco se mg/dL 70.0 99.0 74 FINAL Elan Myhand [facility], [address] [facility] [place] [id number] 9 Vincent Ricchiut i PhD 02/20 BUN mg/dL 6.0 24.0 8 FINAL Elan Myhand [facility], [address] [facility] [id number] 9 Vincent Ricchiut i PhD 02/20 Creat inine mg/dL 0.57 1.0 0.69 FINAL [facility], [address] [facility] [id number] 9 Vincent Ricchiut i PhD 02/20 eGFR mL/min /1.73 108 FINAL Elan [facility], [address] [facility] [id number] 9 Vincent Ricchiut i PhD 02/20 BUN/C reati nine ratio 9.0 23.0 12 FINAL Elan [facility], [address] [facility] [id number] 9 Vincent Ricchiut i PhD 02/20 Sodiu m mmol/L 134.0 144.0 140 FINAL Elan [facility], [address] [facility] [id number] 9 Vincent Ricchiut i PhD 02/20 Potas sium mmol/L 3.5 5.2 4.7 FINAL Elan [facility], [address] [facility] [id number] 9 Vincent Ricchiut i PhD 02/20 Chlor sophie mmol/L 96.0 106.0 99 FINAL Elan [facility], [address] [facility] [id number] 9 Vincent Ricchiut i PhD 02/20 CO2 mmol/L 20.0 29.0 25 FINAL Elan [facility], [address] [facility] [id number] 9 Vincent Ricchiut i PhD 02/20 Calci um mg/dL 8.7 10.2 9.2 FINAL El[facility], [address] [facility] [id number] 9 Vincent Ricchiut i PhD 02/20 Total prote in g/dL 6.0 8.5 7.3 FINAL Elan [facility], [address] [facility] [id number] 9 Vincent Ricchiut i PhD 02/20 Album in g/dL 3.8 4.8 4.8 FINAL Elan [facility], [address] [facility] [id number] 9 Vincent Ricricokieran denisse PhD 02/20 Globu marcy g/dL 1.5 4.5 2.5 FINAL Elan [facility], [address] [facility] [id number] 9 Isidro Bass i PhD 02/20 A/G ratio 1.2 2.2 1.9 FINAL Elan [facility], [address] [facility] [id number] 9 Isidro Alonzoricokieran denisse PhD 02/20 Bilir ubin, total mg/dL 0.0 1.2 0.8 FINAL El[facility], [address] [facility] [id number] 9 Isidro Alonzobrittni salcedo PhD 02/20 Alkal ine phosp hatas e IU/L 44.0 121.0 104 FINAL Elan [facility], [address] [facility] [id number] 9 Isidro Bass denisse PhD 02/20 AST/S GOT IU/L 0.0 40.0 24 FINAL Elan [facility], [address] [facility] [id number] 9 Isidro Bass denisse PhD 02/20 ALT/S GPT IU/L 0.0 32.0 31 FINAL [facility], [address] [facility] [id number] 9 Isidro Bass denisse PhD Medications Date Name Route Dose Frequency Instructions Start Date End Date Status Liraglutide Subcutaneous Pen Injector (Saxenda) a ctive Rimegepant Oral Disintegrating Tablet active Naproxen Oral act laura metaxalone Oral (Skelaxin) active Cefdinir Oral act laura Problems Diagnosis Status Date of Diagnosis Resolution Date Breast cancer, female Active Advance directive informatio n unavailable (finding) Active HTN Active Vital Signs Date Type Value 02/20/2022 Heart Beat 77.00 02/20/2022 Intravascular Systolic 149 02/20/2022 Intravascular Diastolic 98 02/20/2022 Body Temperature 98.10 02/20/2022 Respiratory Rate 16.00 02/20/2022 Pain Scale 0.00 02/20/2022 Weight 244.00 02/20/2022 Height 66.00 02/20/2022 BMI 39.38 02/20/2022 BSA 2.18 02/20/2022 Oxygen Saturation 98.00 Notes Section * Nurse Note for: 20-FEB-22 [facility] Oncology and Hematology Nurse Note Print Location: Unknown Date/Time Printed: 12/13/2024 08:30 ([facility]) Patient: Hussain Rubin Sex: Female : 1975 Date of Service: 02/20/2022 Allergies : Sulfamide, Penicillins Vital Signs : Time: 13:14. Pulse: 77 (/min) . Blood pressure: 149/98 (mm Hg). Entered by Shalini Coto 02/20/2022 13:17 Time: 13:14. Weight: 244 (lb) . Height: 66 (in) . BMI: 39.38 (kg/m2) . BSA: 2.18 (m2) . Temperature: 98.1 (F) . Respirations: 16 (/min) . Pain Scale: 0. O2 Saturation: 98 (%) . Entered by Shalini Coto 02/20/2022 13:15 Time: 03:00. Pain Scale: 0. Entered by Shalini Coto 02/20/2022 13:12 Patient Assessment : Negative results Assessment : Labs Verified: No, Alert, oriented with appropriate behavior, Gait Changes. Denies Neuropathy , Pain -0-No pain, Fatigue , Anxiety/Depression , Fever, Chills or Night Sweats ,Signs of Infection , Skin Changes , Dizziness , Headaches , Nausea , Breathing Changes , Cough , Mouth Sores/Stomatitis/Mucositis , Changes in Appetite , Vomiting , Diarrhea , Constipation , Urinary Changes , Bleeding . Entered By Shalini Coto on 13:12
--- OUTSIDE RECORDS SUMMARY | 2024-12-13 08:31 | XMS_ITS | CCD ---
Author Name Interface, [id number] lity Address [address] [place] [address] Oncology an d Hematology Address [address] [place] [address] Care Team Providers Care Environmental Protection Specialist Name Role Phone Elan Rose MD Unavailable Unavailable Allergies and Adverse Reactions Reason for Visit Medications Problems Social History
--- OUTSIDE RECORDS SUMMARY | 2024-12-13 08:31 | XMS_ITS | Clinical Summary ---
Author Organization [facility] Address [address] [place] [address] Phone Care Team Providers Care Research Greenhouse Supervisor Name Role Phone Unavailable Primary Care Provider Unavailabl e Allergies Active Allergy Reactions Criticality Noted Date Comments Penicillins 05/14/2010 Sulfa (Sulfonamide Antibiotics) 05/04 Medications * This document contains information received from the source organization and may not represent a complete record from that organization. amitriptyline (ELAVIL) 25 mg Oral Tablet TAKE 1 TABLET BY MOUTH EVERY DAY AT NIGHT 03/01/2018 Active butalbital-aceta minophen-caffein e (FIORICET, ESGIC) 50-325-40 mg Oral Tablet Take by mouth. 12/09/2017 Active ibuprofen (ADVIL;MOTRIN) 600 mg Oral Tablet Take by mouth. 12/09/2017 Active metaxalone (SKELAXIN) 800 mg Oral Tablet Take by mouth. 12/09/2017 Active SUMAtriptan (IMITREX) 100 mg Oral Tablet Take by mouth. 12/09/2017 Active Active Problems No known active problems Surgical History Surgery Date Site/Laterality Comments TONSILLECTOMY CHOLECYSTECTOMY TUBAL LIGATION HAND SURGERY ganglion right wrist KNEE ARTHROSCOPY 05/14/2018 Right RIGHT KNEE ARTHROSCOPY DEBRIDEMENT MEDIAL MENISCECTOMY CHONDROPLASTY ; Surgeon: Henri Guerrero MD; Location: [facility]; Service: Orthopedics Medical History Medical History Date Comments Headache Chronic kidney disease stones Degenerative disc disease, lumbar Post-operative nausea and vomiting Family History Medical History Relation Name Comments No Known Problems Brother No Known Problems Father No Known Problems Maternal Grandfather Bleeding Prob Maternal Grandmother High Blood Pressure Maternal Grandmother Diabetes Mother Heart Disease Mother No Known Problems Other Cancer Paternal Grandfather Heart Disease Paternal Grandfather Stroke Paternal Grandmother Vision Loss Paternal Grandmother No Known Problems Sister Relation Name Status Comments Brother Father Maternal Grandfather Maternal Grandmother Mother Other Paternal Grandfather Paternal Grandmother Sister Social History Tobacco Use Types Packs/Day Years Used Date Smoking Tobacco: Former Smokeless Tobacco: Never Alcohol Use Standard Drinks/Week Comments No 0 (1 standard drink = 0.6 oz pur e alcohol) Comments No Sex and Gender Information Value Date Recorded Sex Assigned at Not on file Legal Sex Female 12:14 PM EDT Gender Identity Not on file Sexual Orientation Not on file Obstetrics History Last Filed Vital Signs Vital Sign Reading Time Taken Comments Blood Pressure 118/75 05/14/2018 5:42 PM EST Pulse 87 05/14/2018 5:42 PM EST Temperature 36.4 C (97.5 F) 05/14/2018 5:42 PM EST Respiratory Rate 18 05/14/2018 5:42 PM EST Oxygen Saturation 97% 05/14/2018 5:42 PM EST Inhaled Oxygen Concentration - - Weight 110.4 kg (243 lb 5 oz) 05/14/2018 2:52 PM EST Height 165.1 cm (5' 5 ) 05/14/2018 2:52 PM EST Body Mass Index 40.49 05/14/2018 2:52 PM EST Plan of Treatment Health Maintenance Due Date Last Done Comments Annual Wellness Exam 09/26/1978 DTaP/TDaP/Td (1 - Tdap) 09/26/1994 Hepatitis B Vaccine (1 of 3 - 19+ 3-dose series) 09/26/1994 Cervical Cancer Screening 09/26/1996 Pap Smear 09/26/1996 HPV/Pap Cotest 09/26/2005 Breast Cancer Screening 2015 Cologuard 09/26/2020 Colon Cancer Screening 09/26/2020 Colonoscopy 09/26/2020 FIT 09/26/2020 Sigmoidoscopy 09/26/2020 Virtual Colonography 09/26/2020 COVID-19 Vaccine ( - 2023-2 5 season) 2024 Influenza Vaccine (#1) 2025 Meningococcal B Vaccine Aged Out No l onger eligible based on patient's age to complete this topic Pneumococcal Vaccine 0-49 Aged Out No longer eligible based on patient's age to complete this topic Insurance ANTHEM PPO ANTHEM PPO ANTHEM PPO
== END 2024-12-13 08:20 | disposition home or self-care (01) ==
LOC: INF 08:17
PROVIDERS: PCP Nurse Practitioner; Visit Provider Internal Medicine
DX: Z45.2 Encounter for adjustment and management of vascular access device (principal)
CPT/HCPCS: 96523; J1642

== ENCOUNTER 2025-02-28 15:58 | Outpatient (CLI) | payer BC, SELFPAY ==
[2025-02-28] MEDS: SODIUM CHLORIDE 0.9% 10ML FLUSH SYRINGE 10 ML IV (16:13)
== END 2025-02-28 23:59 | disposition home or self-care (01) ==
LOC: INF 15:59
PROVIDERS: PCP Nurse Practitioner; Visit Provider Internal Medicine
DX: Z01.89 Encounter for other specified special examinations (principal)
CPT/HCPCS: 96523; J1642

== ENCOUNTER 2025-04-11 16:04 | Outpatient (CLI) | payer BC, SELFPAY ==
[2025-04-11] MEDS: SODIUM CHLORIDE 0.9% 10ML FLUSH SYRINGE 10 ML IV (16:21)
== END 2025-04-11 23:59 | disposition home or self-care (01) ==
LOC: INF 16:05
PROVIDERS: PCP Nurse Practitioner; Visit Provider Internal Medicine
DX: Z76.89 Persons encountering health services in other specified circumstances (principal)
CPT/HCPCS: 96523; J1642